=== PATIENT | male | born 1985 | race Caucasian/White ===

== ENCOUNTER 2019-12-02 18:09 | Emergency (ER) | payer MEDICARE, MEDICAID, SELFPAY ==
[2019-12-02 18:38] VITALS: BP 131/83; PULSE 88; RESP 16; TEMP 37.3; O2SAT 100
--- NOTE | 2019-12-02 19:08 | ED.DENTAL ---
HPI - Dental/Oral General Chief complaint: Dental/Oral Stated complaint: tooth pain Time Seen by Provider: 12/02/19 19:08 Source: patient Mode of arrival: ambulatory Limitations: no limitations History of Present Illness HPI Narrative: Huey Rios is a 34 yo male with terrible dentition and has 3 teeth, 22-24 which are swollen and broken off. Saw dentist on 11/10 - could not afford extraction - infected Related Data Home Medications Medication Instructions Recorded Confirmed bupropion HCl 300 mg PO DAILY 12/02/19 12/02/19 hydrochlorothiazide 25 mg PO DAILY 12/02/19 12/02/19 Allergies Allergy/AdvReac Type Severity Reaction Status Date / Time No Known Allergies Allergy Verified 12/02/19 19:11 Review of Systems Review of Systems: Narrative: CONSTITUTIONAL: Denies fever, chills, sweats. EYES: Denies visual changes, redness, discharge. ENT: Denies rhinorrhea, congestion, sore throat, otalgia. 3 fractured teeth, gum and lip swelling CARDIOVASCULAR: Denies chest pain, palpitations, edema. RESPIRATORY: Denies dyspnea, wheezing, cough GASTROINTESTINAL: Denies abdominal pain, nausea, vomiting, diarrhea. GENITOURINARY: Denies dysuria, hematuria, abnormal discharge SKIN: Denies rash or itching. NEUROLOGIC: Denies numbness, or focal weakness. PSYCHIATRIC: Denies anxiety or depression. WILFRID Family History Family History (Updated 12/02/19 @ 19:12 by Viviana Jordan CNP) Other No acute medical problems Social History Social History (Updated 12/02/19 @ 19:12 by Viviana Jordan CNP) Smoking status: Current every day smoker Alcohol intake: never Comments At time of signature, I agree with nursing past medical, surgical, social and family history. There is no relevant family history pertinent to the presenting complaint. Exam Narrative: Exam Narrative: GENERAL: This is a well-nourished, well-developed patient, in mild distress. HEAD: normocephalic, atraumatic. EYES: Sclera clear/white. Vision is grossly intact. EARS: External ears normal, . Hearing grossly intact. NOSE: External nose normal without nasal discharge, nares without redness, no rhinorrhea. THROAT: Mucous membranes moist, posterior pharynx pink non-edematous; very poor dentition with multiple broken teeth missing teeth, (22-24 gum swelling cheek and lip edema NECK: Neck supple, non-tender CARDIOVASCULAR: Regular rate and rhythm without murmurs, gallops, or rubs. RESPIRATORY: Clear to auscultation. Breath sounds equal bilaterally. No wheezes, rales, or rhonchi. GASTROINTESTINAL: Abdomen soft, non-tender, SKIN: warm, intact with no suspicious lesions or rash, good texture and turgor. NEURO: awake, alert, and oriented to person, place and time. There were no obvious focal neurologic abnormalities. Steady gait EXTREMITIES: Normal range of motion. BACK: Nontender without deformity Course Course Emergency Course: Started on clindamycin and tramadol, ibuprofen Vital Signs Vital signs: Vital Signs Temperature 99.2 F 12/02/19 18:38 Pulse Rate 88 12/02/19 18:38 Respiratory Rate 16 12/02/19 18:38 Blood Pressure 131/83 12/02/19 18:38 Pulse Oximetry 100 12/02/19 18:38 Temperature 99.2 F 12/02/19 18:38 Pulse Rate 88 12/02/19 18:38 Respiratory Rate 16 12/02/19 18:38 Blood Pressure 131/83 12/02/19 18:38 Pulse Oximetry 100 12/02/19 18:38 MDM - Dental/Oral Differential Diagnosis Differential diagnosis: Likely dental caries, toothache, dental abscess, fracture of tooth and other Discharge Plan Discharge Clinical Impression: Dental abscess Patient Disposition: Home, Self-Care Condition: Stable Instructions: Antibiotic Form, Dental Abscess (ED) Additional Instructions: call dental school or dentist off list provided at discharge Prescriptions: New clindamycin HCl 300 mg capsule 300 mg PO Q8H Qty: 30 RF: 0 ibuprofen 600 mg tablet 600 mg PO TID PRN (Reason: pain) Qty: 30 RF: 0 Lid
== END 2019-12-02 19:21 | disposition home or self-care (01) ==
PROVIDERS: Emergency Provider Nurse Practitioner; PCP Nurse Practitioner Family
DX: K04.7 Periapical abscess without sinus (principal); F17.210 Nicotine dependence, cigarettes, uncomplicated
CPT/HCPCS: 99213; G0463

== ENCOUNTER 2021-05-06 17:17 | Emergency (ER) | payer MEDICARE, MEDICAID, SELFPAY ==
--- NOTE | ~2021-05-06 | XR_ITS ---
XR chest 2V DATE: 05/06/2021 17:50 INDICATION: Left lower chest pain. Cough. Left upper quadrant abdominal pain. TECHNIQUE: PA and lateral views COMPARISON: None FINDINGS: Moderate bilateral hyperinflation. There is minimal infiltrate, atelectasis or scarring in the right upper lobe peripherally. The lungs otherwise appear clear. No pleural effusion or pulmonary vascular congestion or pneumothorax. Normal heart size. No hilar or mediastinal enlargement. Diffuse osteopenia. IMPRESSION: Minimal infiltrate, atelectasis or scarring in the peripheral right upper lobe Bilateral hyperinflation Reviewed, dictated and finalized at location A.
[2021-05-06 17:22] VITALS: BP 154/77; PULSE 91; RESP 16; TEMP 37.1; O2SAT 99
--- NOTE | 2021-05-06 17:35 | ED.BACK ---
HPI - Back Pain/Injury General Chief Complaint: Back Pain/Injury Stated Complaint: pain under left arm when cough Time Seen by Provider: 05/06/21 17:36 Source: patient Mode of arrival: ambulatory Limitations: no limitations History of Present Illness HPI Narrative: Huey Rios is a 36 yo ,jerry with a PMH of asthma comes to [facility] with complaints of left upper pulmonary pain under the left axilla states only is painful when he coughs. Is not tender to touch and are does not hurt when he moves his arms are turned to his chest Related Data Home Medications Medication Instructions Recorded Confirmed bupropion HCl 300 mg PO DAILY 12/02/19 12/02/19 hydrochlorothiazide 25 mg PO DAILY 12/02/19 12/02/19 albuterol sulfate INHALATION 05/06/21 montelukast mg 05/06/21 Allergies Allergy/AdvReac Type Severity Reaction Status Date / Time No Known Allergies Allergy Verified 12/02/19 19:11 Review of Systems Review of Systems: CONSTITUTIONAL: Denies fever, chills, sweats. EYES: Denies visual changes, redness, discharge. ENT: Denies rhinorrhea, congestion, sore throat, otalgia. CARDIOVASCULAR: Denies chest pain, palpitations, edema. RESPIRATORY: Denies dyspnea, wheezing, cough GASTROINTESTINAL: Denies abdominal pain, nausea, vomiting, diarrhea. GENITOURINARY: Denies dysuria, hematuria, abnormal discharge SKIN: Denies rash or itching. NEUROLOGIC: Denies numbness, or focal weakness. PSYCHIATRIC: Denies anxiety or depression. Left upper chest wall pain with pain around the axilla does not increase with movement or does not is not tender WILFRID Past Medical History Medical History No acute medical problems Family History Family History (Updated 05/06/21 @ 17:47 by Viviana Jordan CNP) Other Heart disease Hypertension Social History Social History (Updated 12/02/19 @ 19:12 by Viviana Jordan CNP) Smoking status: Current every day smoker Alcohol intake: never Comments At time of signature, I agree with nursing past medical, surgical, social and family history. There is no relevant family history pertinent to the presenting complaint. Exam Narrative: GENERAL: This is a well-nourished, well-developed patient, in mild distress. HEAD: normocephalic, atraumatic. EYES:Sclera clear/white. Vision is grossly intact. EARS: External ears normal,. Hearing grossly intact. NOSE: External nose normal without nasal discharge, nares without redness, no rhinorrhea. THROAT: Mucous membranes moist, NECK: Neck supple, non-tender CARDIOVASCULAR: Regular rate and rhythm without murmurs, gallops, or rubs. Chest wall nontender to palpation or with movement RESPIRATORY: Clear to auscultation. Breath sounds equal bilaterally. No wheezes, rales, or rhonchi. GASTROINTESTINAL: Abdomen soft, non-tender, SKIN: warm, intact with no suspicious lesions or rash, good texture and turgor. NEURO: awake, alert, and oriented to person, place and time. There were no obvious focal neurologic abnormalities. Steady gait EXTREMITIES: Normal range of motion. BACK: Nontender without deformity Course Course Emergency Course: Patient has chest wall pain with coughing Chest x-ray done-results: Bilateral moderate hyperinflation, no pleural effusion or pulmonary vascular congestion normal heart size minimal infiltrate atelectasis right upper lobe and diffuse osteopenia Started on prednisone, Zithromax, Zyrtec She follow-up with PCP about osteopenia especially since patient is not a smoker Vital Signs Vital signs: Vital Signs Temperature 98.8 F 05/06/21 17:22 Pulse Rate 91 05/06/21 17:22 Respiratory Rate 16 05/06/21 17:22 Blood Pressure 154/77 H 05/06/21 17:22 Pulse Oximetry 99 05/06/21 17:22 Temperature 98.8 F 05/06/21 17:22 Pulse Rate 91 05/06/21 17:22 Respiratory Rate 16 05/06/21 17:22 Blood Pressure 154/77 H 05/06/21 17:22 Pulse Oximetry 99 05/06/21 17:22
== END 2021-05-06 18:32 | disposition home or self-care (01) ==
PROVIDERS: Emergency Provider Nurse Practitioner; PCP Nurse Practitioner Family
DX: R91.8 Other nonspecific abnormal finding of lung field (principal); M81.0 Age-related osteoporosis without current pathological fracture
CPT/HCPCS: 71046; 99213; G0463

== ENCOUNTER 2022-06-19 13:30 | Emergency (ER) | payer MEDICARE, MEDICAID, SELFPAY ==
--- NOTE | ~2022-06-19 | XR_ITS ---
EXAMINATION: XR chest 2V DATE: 06/19/2022 15:19 INDICATION: Cough TECHNIQUE: PA and lateral views of the chest are obtained. COMPARISON: 05/06/2021 FINDINGS: The lungs are free of acute opacities. No pleural effusion or pneumothorax. The cardiomedia stinal silhouette is normal. The visualized bones and soft tissues are unremarkable. IMPRESSION: 1. No acute cardiopulmonary abnormality. Reviewed, dictated and finalized at location A. [employer]
[2022-06-19 13:58] VITALS: BP 123/77; PULSE 90; RESP 16; TEMP 36.4; O2SAT 98
--- NOTE | 2022-06-19 15:06 | ED.GENADULT ---
HPI - General Adult General Chief complaint: Upper Respiratory Infection Stated complaint: cough Source: patient Mode of arrival: ambulatory Limitations: no limitations History of Present Illness HPI narrative: Patient presents for evaluation of sick symptoms for last 4 days. Symptoms include cough, mild sore throat, generalized body aches and mild headache. He had some diarrhea at the time of symptom onset but that has resolved. His brother has similar symptoms. He has never had COVID. He has received COVID vaccination and boosters. He has not received a flu shot this year. He does not smoke. Underlying hx of CP. No additional complaints or concerns. Related Data Home Medications Medication Instructions Recorded Confirmed bupropion HCl 300 mg 24 hr tablet, 300 mg PO DAILY 12/02/19 12/02/19 extended release hydrochlorothiazide 25 mg tablet 25 mg PO DAILY 12/02/19 12/02/19 albuterol sulfate 90 mcg/actuation inhalation 05/06/21 aerosol inhaler montelukast 10 mg tablet mg 05/06/21 Allergies Allergy/AdvReac Type Severity Reaction Status Date / Time No Known Allergies Allergy Verified 12/02/19 19:11 Review of Systems Review of Systems: CONSTITUTIONAL: Denies fever, chills, or sweats. EYES: Denies visual changes, redness, or discharge. ENT: Reports sore throat. Denies rhinorrhea, congestion, or otalgia. CARDIOVASCULAR: Denies chest pain, palpitations, or edema. RESPIRATORY: Reports cough. Denies SOB. GASTROINTESTINAL: Reports recent diarrhea, now resolved. Denies abdominal pain, nausea, or vomiting GENITOURINARY: Denies dysuria or hematuria. SKIN: Denies rash or itching. MUSCULOSKELETAL: Reports generalized body aches. NEUROLOGIC: Denies headache, numbness, dizziness, or weakness. PSYCHIATRIC: Denies anxiety or depression. [facility] Past Medical History Medical History (Updated 06/19/22 @ 15:59 by Jake Law, PATSY, BC) Cerebral palsy Surgical History Surgical History No pertinent past surgical history Family History Family History Mother Family history non-contributory Other Heart disease Hypertension Social History Social History Alcohol intake: never Substance use: never Living arrangements: with family Gender identity (if verbalized by the patient): Male Exam Narrative: GENERAL: Well-appearing, well-nourished, and in no acute distress. HEAD: Normocephalic, atraumatic. EYES: PERRLA and EOMI. ENT: Nares clear, no rhinorrhea or epistaxis. Mucous membranes moist. Oropharynx without tonsillar hypertrophy exudate or other lesions. Bilateral TMs pearly headley nonbulging NECK: Supple. No adenopathy or masses. No carotid bruits or JVD CHEST: Diffuse inspiratory and expiratory wheezing and rales noted bilaterally in posterior lung abraham. Cough present on exam HEART: Regular rate and rhythm. No murmur heard. Normal peripheral pulses. ABDOMEN: Soft, nontender, nondistended, normal active bowel sounds. EXTREMITIES: Normal range of motion. No edema. SKIN: Warm, dry, no rash. NEURO: No focal deficits. Alert and oriented x3. PSYCH: Normal mood and affect. Course Course Emergency Course: This is a 37-year-old male who presents for evaluation of respiratory symptoms. Chest x-ray normal. COVID negative. Influenza positive. Given Solu-Medrol and neb treatment. Saturations normal on room air. He appears well clinically. Will DC with Tamiflu, prednisone, albuterol. Increase hydration. [id number] agents for symptom management. Go to the ER for difficulty breathing. Follow up with primary this week Patient in agreement plan of care. Level of Care: Express Care Visit Vital Signs Vital signs: Vital Signs Temperature 36.4 C L 06/19/22 13:58 Pulse Rate 90 06/19/22 13:58 Respiratory Ra
[2022-06-19] MEDS: IPRATROPIUM BR 0.02% INH SOLN 0.5 MG/2.5 ML VIAL INHALATION (15:30)
[2022-06-19] MEDS: methylPREDNISolone SOD SUCC 125 MG VIAL IM (15:30)
[2022-06-19] MEDS: ALBUTEROL SULFATE NEB 2.5 MG/3 ML INH INHALATION (15:30)
[2022-06-19 15:56] VITALS: PULSE 94; RESP 16; O2SAT 99
== END 2022-06-19 16:04 | disposition home or self-care (01) ==
PROVIDERS: Emergency Provider Nurse Practitioner; PCP Nurse Practitioner Family
DX: J10.1 Influenza due to other identified influenza virus with other respiratory manifestations (principal); Z20.822 Contact with and (suspected) exposure to COVID-19; G80.9 Cerebral palsy, unspecified
CPT/HCPCS: 71046; 87426; 87804; 94640; 96372; 99213; C9803; G0463; J2930

== ENCOUNTER 2022-09-14 19:31 | Emergency (ER) | payer MEDICARE, MEDICAID, SELFPAY ==
--- NOTE | ~2022-09-14 | XR_ITS ---
EXAM: XR knee LT min 4V DATE: 09/14/2022 19:51 HISTORY: FALL AGAINST GUARDRAIL, ANT PAIN . COMPARISON: None available. FINDINGS: Decreased mineralization. No fracture or dislocation. No lytic or blastic lesion. Joint sp aces are maintained. No erosion or periosteal change. Mild anterior soft tissue swelling. IMPRESSION: No acute osseous finding in the left knee. Reviewed, dictated and finalized at location K.
[2022-09-14 19:40] VITALS: BP 142/80; PULSE 81; RESP 16; TEMP 36.9; O2SAT 100
--- NOTE | 2022-09-14 19:55 | ED.LOWEXIN ---
HPI - Extremity Injury (Lower) General Chief Complaint: Extremity Injury, Lower Stated Complaint: Left Knee Injury Time Seen by Provider: 09/14/22 19:55 Source: patient, RN notes reviewed and old records reviewed Mode of arrival: ambulatory Limitations: no limitations History of Present Illness HPI Narrative: 37 YEAR OLD MALE WHO PRESENTS TO [facility] WITH COMPLAINTS OF INJURY TO HIS LEFT KNEE which occurred when he was climbing up an embankment and he hit his left knee on a guardrail pole yesterday. Patient has some bruising to anterior aspect of his left knee with small abrasion noted no bleeding noted, mild swelling present. Patient reports that pain to his left knee increases when he bends his knee is able to bear weight to his left knee.Patient reports that he has been taking Ibuprofen for his discomfort which he describes as achy. MD complaint: knee injury Onset (ago): day(s) (1) Type of Injury: blunt Severity scale (1-10): 5 Exacerbating factors: other (bending of knee) Treatments prior to arrival: NSAIDS Related Data Home Medications Medication Instructions Recorded Confirmed bupropion HCl 300 mg 24 hr tablet, 300 mg PO DAILY 12/02/19 09/14/22 extended release hydrochlorothiazide 25 mg tablet 25 mg PO DAILY 12/02/19 09/14/22 montelukast 10 mg tablet 10 mg PO DAILY 05/06/21 09/14/22 Allergies Allergy/AdvReac Type Severity Reaction Status Date / Time No Known Allergies Allergy Verified 09/14/22 19:48 Review of Systems Review of Systems: CONSTITUTIONAL: Denies fever, chills, or sweats. EYES: Denies visual changes, redness, or discharge. ENT: Denies rhinorrhea, congestion, sore throat, or otalgia. CARDIOVASCULAR: Denies chest pain, palpitations, or edema. RESPIRATORY: Denies cough or dyspnea. GASTROINTESTINAL: Denies abdominal pain, nausea, vomiting, or diarrhea. GENITOURINARY: Denies dysuria or hematuria. SKIN: Denies rash or itching. MUSCULOSKELETAL: Denies back pain,positive for pain and swelling to anterior left knee joint, or myalgia. NEUROLOGIC: Denies headache, numbness, or weakness. PSYCHIATRIC: Positive for history of anxiety or depression. All systems reviewed & are unremarkable except as noted in HPI and below [facility] Past Medical History Medical History (Updated 09/16/22 @ 18:06 by Sofiya Bishop NP) Anxiety and depression Asthma Cerebral palsy Hypertension Surgical History Surgical History (Updated 09/16/22 @ 17:47 by Sofiya Bishop NP) History of tonsillectomy Family History Family History Mother Family history non-contributory Other Heart disease Hypertension Social History Social History (Updated 09/16/22 @ 17:47 by Sofiay Bishop NP) Smoking status: Never smoker Alcohol intake: never Substance use: never Living arrangements: with family Gender identity (if verbalized by the patient): Male Comments At time of signature, agree with nursing past medical, surgical, social and family history. There is no relevant family history pertinent to the presenting complaint Exam Narrative: GENERAL: Well-appearing, well-nourished, and in no acute distress. HEAD: Normocephalic, atraumatic. EYES: PERRLA and EOMI. ENT: Nares clear, no rhinorrhea or epistaxis. Mucous membranes moist.TM's normal with good light reflex, throat pink with no exudates or swelling NECK: Supple.no lymphadenopathy CHEST: Clear to auscultation. No respiratory distress.SAO2 100% on room airr HEART: Regular rate and rhythm. No murmur heard. Normal peripheral pulses. ABDOMEN: Soft, nontender, nondistended, normal active bowel sounds. EXTREMITIES: Normal range of motion. mild edema to anterior lef knee with some bruising noted, full ROM noted with some discomfort with bending,able to put full weight bearing on left leg. patient denies any tingling or numbness to left leg or foot, strong left pedal pulse. SKIN: Warm, dry, no rash. N
== END 2022-09-14 20:15 | disposition home or self-care (01) ==
PROVIDERS: Emergency Provider Registered Nurse; PCP Nurse Practitioner Family
DX: M25.562 Pain in left knee (principal); J45.909 Unspecified asthma, uncomplicated; G80.9 Cerebral palsy, unspecified; I10 Essential (primary) hypertension; F41.9 Anxiety disorder, unspecified; F32.A Depression, unspecified
CPT/HCPCS: 73564; 99213; G0463

== ENCOUNTER 2023-07-13 10:58 | Emergency (ER) | payer MEDICARE, MEDICAID, SELFPAY ==
[2023-07-13 11:08] VITALS: BP 139/83; PULSE 89; RESP 18; TEMP 36.6; O2SAT 100
--- NOTE | 2023-07-13 11:27 | ED.GENADULT ---
HPI - General Adult General Chief complaint: Extremity Injury, Lower Stated complaint: left toe infection Source: patient, RN notes reviewed and old records reviewed Mode of arrival: ambulatory Limitations: no limitations History of Present Illness HPI narrative: 38-year-old male patient presents to [facility] with complaints pain, redness, swelling around left great toe this started 2-3 days ago. Patient denies injury, patient denies drainage. MD complaint: Toe pain Onset (ago): day(s) (2-3) Related Data Home Medications Medication Instructions Recorded Confirmed bupropion HCl 300 mg 24 hr tablet, 300 mg PO DAILY 12/02/19 07/13/23 extended release hydrochlorothiazide 25 mg tablet 25 mg PO DAILY 12/02/19 07/13/23 montelukast 10 mg tablet 10 mg PO DAILY 05/06/21 07/13/23 bupropion HCl 150 mg 24 hr tablet, 150 mg PO DAILY 07/13/23 07/13/23 extended release ibuprofen 800 mg tablet 800 mg PO Q8-10H PRN Pain, Mild 07/13/23 07/13/23 sertraline 100 mg tablet 100 mg PO DAILY 07/13/23 07/13/23 sertraline 50 mg tablet 50 mg PO DAILY 07/13/23 07/13/23 Allergies Allergy/AdvReac Type Severity Reaction Status Date / Time No Known Allergies Allergy Verified 07/13/23 11:19 Review of Systems Constitutional: Constitutional: Reports no additional constitutional complaints, Denies body ache(s), Denies chills, Denies fatigue, Denies fever(s) and Denies headache(s) Eyes: Eyes: Reports no additional eye complaints and Denies blurry vision ENT: Reports system reviewed and no additional complaints, except as documented, Denies vertigo, Denies dizziness, Denies ear discharge, Denies otalgia, Denies facial pain, Denies headache(s), Denies nasal congestion, Denies nasal discharge, Denies sinus pain, Denies sinus pressure and Denies sore throat Cardiovascular: Cardiovascular: Reports no additional cardiovascular complaints, Denies chest pain, Denies chest pain at rest, Denies rapid heart rate and Denies dyspnea Respiratory: Respiratory: Reports no additional respiratory complaints, Denies chest congestion, Denies cough, Denies pain on inspiration, Denies pain with cough and Denies dyspnea Gastrointestinal: Gastrointestinal: Denies abdominal pain, Denies diarrhea, Denies nausea and Denies vomiting Integumentary/Breasts: Skin/Breast: Reports nail changes, Reports change in nails, Denies rash, Reports skin pain and Reports skin swelling Neurologic: Reports system reviewed and no additional complaints, except as documented, Denies vertigo, Denies dizziness and Denies headache(s) Endocrine: Endocrine: Denies fatigue PMFSH Past Medical History Medical History Anxiety and depression Asthma Cerebral palsy Hypertension Surgical History Surgical History History of tonsillectomy Family History Family History Mother Family history non-contributory Other Heart disease Hypertension Social History Social History Smoking status: Never smoker Alcohol intake: never Substance use: never Living arrangements: with family Gender identity (if verbalized by the patient): Male Comments At the time of my signature, I reviewed and agree with the nursing past medical, surgical, social, and family history. There is no relevant family history pertinent to the patient complaint. Exam Const: General: cooperative, healthy appearing, no acute distress and well nourished Nutritional Appearance: well nourished Orientation/consciousness: patient oriented x3 Limitations: no limitations HENMT: Head: normal to inspection and normocephalic Ears: external ears normal, TM's normal bilaterally, mastoids normal and Abnormal EAC present Face/Nose/Sinus: normal facial exam Face and sinus: normal facial exam Mouth: Yes Norm
== END 2023-07-13 11:34 | disposition home or self-care (01) ==
PROVIDERS: Emergency Provider Registered Nurse; PCP Nurse Practitioner Family
DX: L03.032 Cellulitis of left toe (principal); J45.909 Unspecified asthma, uncomplicated; G80.9 Cerebral palsy, unspecified; I10 Essential (primary) hypertension; F41.9 Anxiety disorder, unspecified; F32.A Depression, unspecified
CPT/HCPCS: 10060; 99213; G0463

== ENCOUNTER 2024-12-29 17:24 | Emergency (ER) | payer MEDICARE, MEDICAID, SELFPAY ==
--- NOTE | ~2024-12-29 | XR_ITS ---
EXAMINATION: XR chest 2V Exam Date/Time: 12/29/2024 17:40 CDT HISTORY: right scapular pain Comparison: 06/19/2022, 05/06/2021. RESULT: Lines, tubes, and devices: None. Lungs and pleura: Clear. Cardiomediastinal silhouette: Stable. Other: No acute osseous or upper abdominal finding. IMPRESSION: No acute cardiopulmonary process. Reviewed, dictated and finalized at location K.
[2024-12-29 17:30] VITALS: BP 147/88; PULSE 81; RESP 20; TEMP 36.5; O2SAT 100
--- NOTE | 2024-12-29 17:50 | ED_ITS ---
HPI - General Adult General Chief complaint: Back Pain/Injury Stated complaint: pain in right shoulder blade Source: patient Mode of arrival: ambulatory Limitations: no limitations History of Present Illness HPI narrative: Patient presents for evaluation of right scapular pain for last few days. He denies any precipitating cause or injury. No history of similar symptoms. He has a history of spastic cerebral palsy. He tried taking Tylenol and ibuprofen for his pain without considerable improvement thereafter. Bending forward seems to cause worsening symptoms. Pt is physical exam he states that palpation of the area helps alleviate the pain. He denies any shortness of breath or cough. He does not smoke or vape. Related Data Home Medications ?Medication ?Instructions ?Recorded ?Confirmed ?Last Taken ?Type hydrochlorothiazide 25 mg tablet 25 mg PO DAILY 12/02/19 07/13/23 Unknown History montelukast 10 mg tablet 10 mg PO DAILY 05/06/21 07/13/23 Unknown History bupropion HCl 150 mg 24 hr tablet, 150 mg PO DAILY 07/13/23 07/13/23 Unknown History extended release ibuprofen 800 mg tablet 800 mg PO Q8-10H PRN Pain, Mild 07/13/23 07/13/23 Unknown History sertraline 100 mg tablet 100 mg PO DAILY 07/13/23 07/13/23 Unknown History lisinopril 5 mg tablet mg 12/29/24 Unknown History potassium bicarb and chloride .ROUTE 12/29/24 Unknown History Allergies Allergy/AdvReac Type Severity Reaction Status Date / Time No Known Allergies Allergy Verified 12/29/24 17:35 Review of Systems Review of Systems: CONSTITUTIONAL: Denies fever, chills, or sweats. EYES: Denies visual changes, redness, or discharge. ENT: Denies rhinorrhea, congestion, sore throat, or otalgia. CARDIOVASCULAR: Denies chest pain, palpitations, or edema. RESPIRATORY: Denies cough or dyspnea. GASTROINTESTINAL: Denies abdominal pain, nausea, vomiting, or diarrhea. GENITOURINARY: Denies dysuria or hematuria. SKIN: Denies rash or itching. MUSCULOSKELETAL: Reports pain in the right scapular region. NEUROLOGIC: Denies headache, numbness, dizziness, or weakness. PSYCHIATRIC: Denies anxiety or depression. [facility] Past Medical History Medical History Hypertension Anxiety and depression Asthma Cerebral palsy Surgical History Surgical History History of tonsillectomy Family History Family History Mother Family history non-contributory Other Heart disease Hypertension Social History Social History Smoking status: Never smoker Alcohol intake: never Substance use: never Living arrangements: with family Gender identity (if verbalized by the patient): Male Exam Narrative: GENERAL: Well-appearing, well-nourished, and in no acute distress. HEAD: Normocephalic, atraumatic. EYES: PERRLA and EOMI. ENT: Nares clear, no rhinorrhea or epistaxis. Mucous membranes moist. Oropharynx without tonsillar hypertrophy exudate or other lesions. Bilateral TMs pearly headley nonbulging NECK: Supple. No adenopathy or masses. No carotid bruits or JVD CHEST: Clear to auscultation. No respiratory distress. No wheezes rales or rhonchi HEART: Regular rate and rhythm. No murmur heard. Normal peripheral pulses. ABDOMEN: Soft, nontender, nondistended, normal active bowel sounds. EXTREMITIES: Normal range of motion. No edema. BACK: No tenderness over the right scapular region. No tenderness in the midline or paraspinous muscles of the thoracic spine. SKIN: Warm, dry, no rash. NEURO: No focal deficits. Alert and oriented x3. PSYCH: Normal mood and affect. Course Course Emergency Course: This is a 39-year-old male who presents for evaluation of right scapular pain. X-ray was obtained and was normal. Appears to be muscular pain in origin. He may continue to take OTC ibuprofen and tylenol. Will add flexeril. Application of warm moist heat may help. Follow up with primary provider. Go to the ER for worsening symptoms. Pt in agreement with plan of care. Level of Care: Express Care Visit Vital Signs Vital signs: Vital Signs Temperature 36.5 C 12/29/24 17:30 Pulse Rate 81 12/29/24 17:30 Respiratory Rate 20 12/29/24 17:30 Blood Pressure 147/88 H 06/29/25 17:30 Pulse Oximetry 100 12/29/24 17:30 Oxygen Delivery Room Air 12/29/24 17:30 Temperature 36.5 C 12/29/24 17:30 Pulse Rate 81 12/29/24 17:30 Respiratory Rate 20 12/29/24 17:30 Blood Pressure 147/88 H 12/29/24 17:30 Pulse Oximetry 100 12/29/24 17:30 Oxygen Delivery Room Air 12/29/24 17:30 Medical Decision Making Vital Signs Vital Signs: Vital Signs Temperature 36.5 C 12/29/24 17:30 Pulse Rate 81 12/29/24 17:30 Respiratory Rate 20 12/29/24 17:30 Blood Pressure 147/88 H 12/29/24 17:30 Pulse Oximetry 100 12/29/24 17:30 Oxygen Delivery Room Air 12/29/24 17:30 Temperature 36.5 C 12/29/24 17:30 Pulse Rate 81 12/29/24 17:30 Respiratory Rate 20 12/29/24 17:30 Blood Pressure 147/88 H 12/29/24 17:30 Pulse Oximetry 100 12/29/24 17:30 Oxygen Delivery Room Air 12/29/24 17:30 Imaging Data Radiologist's impression: EXAMINATION: XR chest 2V Exam Date/Time: 12/29/2024 17:40 CDT HISTORY: right scapular pain Comparison: 06/19/2022, 05/06/2021. RESULT: Lines, tubes, and devices: None. Lungs and pleura: Clear. Cardiomediastinal silhouette: Stable. Other: No acute osseous or upper abdominal finding. IMPRESSION: No acute cardiopulmonary process. Discharge Plan Discharge Clinical Impression: Myalgia Patient Disposition: Home Condition: Stable Instructions: Antibiotic Form, Musculoskeletal Pain (ED) Patient Language: Uzbek Prescriptions: New cyclobenzaprine 10 mg tablet 10 mg PO TID PRN (Reason: muscle spasm) Qty: 15 0RF No Action hydrochlorothiazide 25 mg tablet 25 mg PO DAILY lisinopril 5 mg tablet potassium bicarb and chloride [potassium chloride] .ROUTE montelukast 10 mg tablet 10 mg PO DAILY sertraline 100 mg tablet 100 mg PO DAILY bupropion HCl 150 mg tablet extended release 24 hr 150 mg PO DAILY ibuprofen 800 mg tablet 800 mg PO Q8-10H PRN (Reason: Pain, Mild) Follow-up/Referrals: Casiano,Viviana Prescott APN [Primary Care Provider] - Time of Disposition: 18:14
== END 2024-12-29 18:17 | disposition home or self-care (01) ==
PROVIDERS: Emergency Provider Nurse Practitioner; PCP Nurse Practitioner Family
DX: M25.511 Pain in right shoulder (principal); G80.9 Cerebral palsy, unspecified; I10 Essential (primary) hypertension; J45.909 Unspecified asthma, uncomplicated; F41.9 Anxiety disorder, unspecified; F32.A Depression, unspecified
CPT/HCPCS: 71046; 99213; G0463